=== PATIENT | male | born 1980 | race American Indian/Alaskan Native ===

== ENCOUNTER 2017-06-14 19:46 | Emergency (ER) | payer SELFPAY ==
[2017-06-14 19:54] VITALS: BP 126/82
[2017-06-14] MEDS ORDERED: TETANUS/DIPHTHERIA/PERTUSSIS 0.5 ML SYRINGE IM ONE ×2 (20:01→20:11)
--- NOTE | 2017-06-14 20:02 | ED Physician Documentation ---
PD HPI UPPER EXT INJURY - Stated complaint Stated Complaint: FINGER LAC - Chief complaint Chief Complaint: Laceration - History obtained from History obtained from: Patient - History of Present Illness Location: Other (Right-handed gentleman cut the left thumb with a knife just prior to arrival at home. Tetanus is not up-to-date. No other injuries.) Review of Systems Constitutional: reports: Reviewed and negative Cardiac: reports: Reviewed and negative Respiratory: reports: Reviewed and negative PD PAST MEDICAL HISTORY - Past Surgical History Past Surgical History: No - Present Medications Home Medications: Ambulatory Orders Medication Instructions Recorded Confirmed No Known Home Medications [No 01/31/15 06/14/17 Known Home Medications] - Allergies Allergies/Adverse Reactions: Allergies Allergy/AdvReac Type Severity Reaction Status Date / Time No Known Drug Allergies Allergy Verified 06/14/17 19:53 - Social History Does the pt smoke?: No Smoking Status: Never smoker Does the pt drink ETOH?: Yes - Immunizations Immunizations are current?: Yes PD ED PE NORMAL - Vitals Vital signs reviewed: Yes - General General: Alert and oriented X 3, No acute distress - Extremities Extremities: Other (There is a 1.5 cm laceration through the pulp of the left thumb and involving just the ulnar side of the left thumbnail in bed with normal neurovascular status at the tip.) - Neuro Neuro: Alert and oriented X 3, Normal speech - Psych Psych: Normal mood, Normal affect Results - Vitals Vitals: Vital Signs - 24 hr 06/14/17 19:51 Temperature 36.5 C Heart Rate 64 Respiratory 16 Rate Blood Pressure 126/82 H O2 Saturation 97 Oxygen O2 Source Room air Procedures - Laceration (location) L thumb Length in cm: 2 Wound type: Linear Neurovascular status: Sensory intact, Motor intact, Vascular intact Anesthesia: Lidocaine 1%, With bicarb (digital block) Wound Preparation: Betadine, Irrigated copiously NS, Wound explored, To the base. No: FB identified Skin layer closure: Nylon, Interrupted, Size #-0 - enter number (5-0), Sutures - enter # (6) Other: Patient tolerated well, No complications, Neurovascular intact, Tetanus booster given Complexity: Simple Departure - Departure Disposition: 01 Home, Self Care Clinical Impression: Laceration Condition: Good Record reviewed to determine appropriate education?: Yes Instructions: ED Laceration Hand Comments: Come back for any signs of infection which would include: Redness, swelling, drainage, increased pain, or fevers. Follow-up with your physician in About 14 days for suture removal. Your blood pressure was elevated today on check into the emergency department. This does not mean that you have hypertension, it is a common phenomenon to come to the emergency department and have elevated blood pressure. I recommend that you see your primary care physician within the week to have it rechecked when you are feeling better. Forms: Activity restrictions
[2017-06-14] MEDS ORDERED: BUFFERED LIDOCAINE 10 ML SYRINGE ONE (20:07)
== END 2017-06-14 20:38 | disposition home or self-care (01) ==
LOC: ED 19:46
DX: S61.012A Laceration without foreign body of left thumb without damage to nail, initial encounter (principal); W26.0XXA Contact with knife, initial encounter; R03.0 Elevated blood-pressure reading, without diagnosis of hypertension; Z23 Encounter for immunization
CPT/HCPCS: 12001; 90471; 99283

== ENCOUNTER 2017-06-28 13:43 | Emergency (ER) | payer SELFPAY ==
[2017-06-28 13:52] VITALS: BP 146/83
--- NOTE | 2017-06-28 14:22 | ED Physician Documentation ---
PD HPI WOUND RECHECK - Stated complaint Stated Complaint: SUTURE REMOVAL LT THUMB - Chief complaint Chief Complaint: Laceration - Histroy obtained from History obtained from: Patient - History of Present Illness Location: Left Uppper Extremity (thumb) Timing - onset: How many weeks ago (2) Associated symptoms: No: Fever, Redness, Swelling, Drainage Recently seen: Emergency Dept (2 weeks ago for sutures of thumb.) Review of Systems Constitutional: denies: Fever, Chills Skin: denies: Rash, Lesions Neurologic: denies: Focal weakness, Numbness PD PAST MEDICAL HISTORY - Past Surgical History Past Surgical History: No - Present Medications Home Medications: Ambulatory Orders Medication Instructions Recorded Confirmed No Known Home Medications [No 01/31/15 06/28/17 Known Home Medications] - Allergies Allergies/Adverse Reactions: Allergies Allergy/AdvReac Type Severity Reaction Status Date / Time No Known Drug Allergies Allergy Verified 06/28/17 13:52 - Social History Does the pt smoke?: No Smoking Status: Never smoker Does the pt drink ETOH?: Yes Does the pt have substance abuse?: No - Immunizations Immunizations are current?: Yes Immunizations: TDAP >10years/unknown - POLST Patient has POLST: No Results - Vitals Vitals: Oxygen O2 Source Room air PD MEDICAL DECISION MAKING - ED course Complexity details: considered differential (sutures removed without problem. Some dried skin at site and encouraged to use ointment. ), d/w patient Departure - Departure Disposition: 01 Home, Self Care Clinical Impression: Visit for suture removal Condition: Stable Record reviewed to determine appropriate education?: Yes Instructions: ED Wound Check Sutr Remove No Infec Comments: Continue protecting the area until fully healed. Use some ointment once or twice daily to help soften it. The firm scar tissue should soften up and wear down with regular use. Recheck if signs of infection. Discharge Date/Time: 06/28/17 14:33
== END 2017-06-28 14:33 | disposition home or self-care (01) ==
LOC: ED 13:43
DX: S61.012D Laceration without foreign body of left thumb without damage to nail, subsequent encounter (principal); X58.XXXD Exposure to other specified factors, subsequent encounter
CPT/HCPCS: 99282; 99283

== ENCOUNTER 2020-06-01 11:38 | Emergency (ER) | payer MEDICAID ==
[2020-06-01] MEDS ORDERED: TETANUS/DIPHTHERIA/PERTUSSIS 0.5 ML SYRINGE IM ONE (12:22)
[2020-06-01] MEDS ORDERED: BUFFERED LIDOCAINE 10 ML SYRINGE SUBQ STA (12:22)
--- NOTE | 2020-06-01 12:23 | ED Physician Documentation ---
PD HPI HEAD INJURY - Stated complaint Stated Complaint: RT SIDE FACE LAC - Chief complaint Chief Complaint: Laceration - History obtained from History obtained from: Patient - History of Present Illness Timing - onset: Today - Additional information Additional information: He was painting a bunch of doors, one fell and hit him on the forehead where he has a laceration. He got dizzy but did not blackout. Had a significant headache, now gone. No nausea. He did not know his last tetanus shot but per the record had it in 2017. Review of Systems Constitutional: reports: Reviewed and negative Nose: reports: Reviewed and negative Throat: reports: Reviewed and negative PD PAST MEDICAL HISTORY - Past Surgical History Past Surgical History: No - Present Medications Home Medications: Ambulatory Orders Medication Instructions Recorded Confirmed Bacitracin Zinc Oint 1 applic TOP BID #1 tube 06/01/20 - Allergies Allergies/Adverse Reactions: Allergies Allergy/AdvReac Type Severity Reaction Status Date / Time No Known Drug Allergies Allergy Verified 06/01/20 11:45 - Social History Does the pt smoke?: No Smoking Status: Never smoker Does the pt drink ETOH?: Yes Does the pt have substance abuse?: No - Immunizations Immunizations are current?: Yes Immunizations: TDAP >10years/unknown - POLST Patient has POLST: No PD ED PE NORMAL - Vitals Vital signs reviewed: Yes - General General: Alert and oriented X 3, No acute distress - HEENT HEENT: PERRL, EOMI, Other (There is a 3 cm horizontal laceration just above the right eyebrow) - Neck Neck: Supple, no meningeal sign, No bony TTP - Neuro Neuro: Alert and oriented X 3, lawn mower 2-12 intact, No motor deficit, No sensory deficit, Normal speech Results - Vitals Vitals: Vital Signs - 24 hr 06/01/20 11:43 Temperature 36.7 C Heart Rate 57 L Respiratory 17 Rate Blood Pressure 145/84 H O2 Saturation 98 Oxygen O2 Source Room air Procedures - Laceration (location) R face Length in cm: 3 Wound type: Linear, Into subcut fat. No: Into muscle Neurovascular status: Sensory intact, Motor intact, Vascular intact Anesthesia: Lidocaine 1% with epi Wound Preparation: Irrigated copiously NS Skin layer closure: Nylon, Interrupted, Size #-0 - enter number (6-0), Sutures - enter # (10) Complexity: Simple Departure - Departure Disposition: Home, Self Care Clinical Impression: Laceration Condition: Good Record reviewed to determine appropriate education?: Yes Instructions: ED Laceration Facial Sutr Tape Prescriptions: Bacitracin Zinc Oint 1 applic TOP BID #1 tube Comments: Keep it moist with bacitracin ointment. Soap and water/showering is fine. Return for signs of infection, redness, swelling/drainage. Sutures need to come out in 6 days.
[2020-06-01] MEDS ORDERED: LIDOCAINE 1%-EPI 1:100000 20 ML MDV SUBQ STA (12:28)
[2020-06-01] MEDS ORDERED: BACITRACIN ZINC OINT 1 PACKET TOP STA (12:49)
[2020-06-01 12:58] VITALS: BP 133/79
== END 2020-06-01 12:58 | disposition home or self-care (01) ==
LOC: ED 11:38
DX: S01.81XA Laceration without foreign body of other part of head, initial encounter (principal); W20.8XXA Other cause of strike by thrown, projected or falling object, initial encounter; Y93.89 Activity, other specified; Z23 Encounter for immunization
CPT/HCPCS: 12013; 90471; 90715; 99283; 99284; A9270

== ENCOUNTER 2020-06-08 11:29 | Emergency (ER) | payer MEDICAID ==
[2020-06-08 11:39] VITALS: BP 123/80
--- NOTE | 2020-06-08 11:42 | ED Physician Documentation ---
PD HPI WOUND RECHECK - Stated complaint Stated Complaint: STITCHES REMOVAL - Chief complaint Chief Complaint: Wound - Histroy obtained from History obtained from: Patient - History of Present Illness Location: Face (right forehead) Timing - onset: How many weeks ago (1) Associated symptoms: No: Fever, Redness, Drainage Recently seen: Emergency Dept (seen for forehead sutures 1 week ago, healing well and here for suture removal as directed.) Review of Systems Neurologic: denies: Focal weakness, Numbness, Headache PD PAST MEDICAL HISTORY - Past Medical History Past Medical History: No - Past Surgical History Past Surgical History: No - Present Medications Home Medications: Ambulatory Orders Medication Instructions Recorded Confirmed Bacitracin Zinc Oint 1 applic TOP BID #1 tube 06/01/20 - Allergies Allergies/Adverse Reactions: Allergies Allergy/AdvReac Type Severity Reaction Status Date / Time No Known Drug Allergies Allergy Verified 06/08/20 11:39 - Social History Does the pt smoke?: No Smoking Status: Never smoker Does the pt drink ETOH?: Yes Does the pt have substance abuse?: No - Immunizations Immunizations are current?: Yes Immunizations: TDAP >10years/unknown - POLST Patient has POLST: No PD ED PE NORMAL - Vitals Vital signs reviewed: Yes - General General: Alert and oriented X 3, No acute distress, Well developed/nourished - HEENT HEENT: Other (right forehead with healing wound, sutures intact, without signs of infection. ) - Neuro Neuro: Alert and oriented X 3, No motor deficit, Normal speech Eye Opening: Spontaneous Motor: Obeys Commands Verbal: Oriented GCS Score: 15 Results - Vitals Vitals: Vital Signs - 24 hr 06/08/20 11:36 Temperature 36.5 C Heart Rate 61 Respiratory 17 Rate Blood Pressure 123/80 O2 Saturation 98 Oxygen O2 Source Room air PD MEDICAL DECISION MAKING - ED course Complexity details: considered differential, d/w patient Departure - Departure Disposition: 01 Home, Self Care Clinical Impression: Visit for suture removal Condition: Stable Record reviewed to determine appropriate education?: Yes Instructions: ED Wound Check Sutr Remove No Infec Comments: The wound looks good. The sutures can come out at this point. Continue the wound care until fully healed. Recheck if signs of infection. Discharge Date/Time: 06/08/20 12:02
== END 2020-06-08 12:02 | disposition home or self-care (01) ==
LOC: ED 11:29
DX: S01.81XD Laceration without foreign body of other part of head, subsequent encounter (principal)